=== PATIENT | female | born 1980 | race Caucasian/White ===

== ENCOUNTER 2019-01-06 05:00 | Day surgery (SDC) | payer OTHER ==
[~2019-01-06 05:00] MED LIST: LOSARTAN POTASS25 MG
[2019-01-06] MEDS ORDERED: Tylenol #3 PO (08:44)
[2019-01-06] MEDS ORDERED: MONDOXYNE NL100 MG PO (08:44)
== END 2019-01-06 13:30 | disposition home or self-care (01) ==
LOC: CIR.AMB 05:00
DX: D25.0 Submucous leiomyoma of uterus (principal); N84.0 Polyp of corpus uteri